=== PATIENT | male | born 1965 | race African-American/Black ===

== ENCOUNTER 2020-04-28 21:49 | Inpatient (IN) ==
[2020-04-28] MEDS ORDERED: MORPHINE 4 MG/1 ML VIAL ONE (22:25)
[2020-04-28] MEDS ORDERED: MORPHINE 4 MG/1 ML VIAL IV STA (22:25)
[2020-04-28] MEDS ORDERED: ONDANSETRON 4 MG/2 ML VIAL ONE (23:41)
[2020-04-28] MEDS ORDERED: propofoL 200 MG/20 ML VIAL IV ONE (23:41)
[2020-04-28] MEDS ORDERED: LIDOCAINE 2% 5 ML VIAL ONE (23:41)
[2020-04-28] MEDS ORDERED: fentaNYL 100 MCG/2 ML VIAL ONE (23:41)
[2020-04-28] MEDS ORDERED: DEXAMETHASONE 4 MG/1 ML VIAL ONE (23:41)
[2020-04-28] MEDS ORDERED: ROCURONIUM 50 MG/5 ML VIAL IV ONE (23:41)
[2020-04-28] MEDS ORDERED: SUCCINYLCHOLINE 200 MG/10 ML VIAL ONE (23:41)
[2020-04-28] MEDS ORDERED: MIDAZOLAM 2 MG/2 ML VIAL ONE (23:42)
[2020-04-28] MEDS ORDERED: BACITRACIN OINT 0.9 GM PACK TOP ONE (23:42)
[2020-04-28] MEDS ORDERED: MUPIROCIN 2% OINT 22 GM TUBE TOP ONE (23:42)
[2020-04-29] MEDS ORDERED: MORPHINE 4 MG/1 ML VIAL IV PRN ×2 (00:13)
[2020-04-29] MEDS ORDERED: diphenhydrAMINE CAP 25 MG CAPSULE PO PRN (00:13)
[2020-04-29] MEDS ORDERED: MAGNESIUM HYDROXIDE SUSP 30 ML UDCUP PO PRN (00:13)
[2020-04-29] MEDS ORDERED: KETOROLAC 30 MG/1 ML VIAL IV PRN (00:13)
[2020-04-29] MEDS ORDERED: ONDANSETRON 4 MG/2 ML VIAL IV PRN (00:13)
[2020-04-29] MEDS ORDERED: ceFAZolin 1,000 MG VIAL ONE ×2 (00:26)
[2020-04-29] MEDS ORDERED: LACTATED RINGERS 2,000 ML IV ONE (00:59)
[2020-04-29] MEDS ORDERED: KETOROLAC 30 MG/1 ML VIAL ONE (01:13)
[2020-04-29] MEDS ORDERED: SEVOFLURANE 1 UNIT/15 MINUTE INH ONE (01:25)
[2020-04-29] MEDS: ceFAZolin 2,000 MG in PREMIX 1 EACH IV SCH ×3 (03:37→18:12)
[2020-04-29 06:44] LABS: Basophils % 0.2 % (0.0-0.8); Hematocrit 37.4 VOL% (42.0-52.0); Hemoglobin 12.2 GM/DL (14.0-18.0); Immature Granulocytes % 0.5 %; Immature Granulocytes Absolute 0.06 #; Lymphocytes % 8.2 % (21.2-54.2); Mean Corpuscular HGB Conc 32.6 GM/DL (32-36); Mean Corpuscular Volume 83.7 FL (87-102); Mean Platelet Volume 9.5 FL (9.6-12.0); Neutrophils % 87.1 % (38.7-73.9); Platelet Count 256 T/CUMM (130-400); Red Blood Count 4.47 MC/CUMM (3.8-5.5); Red Cell Distribution Width 15.1 % (9.3-17.3); White Blood Count 12.7 T/CUMM (4-12)
[2020-04-29 07:03] LABS: Calcium 8.1 MG/DL (8.5-10.1); Osmolality,Calculated 281.3 MOS/KG (273-304)
[2020-04-29] MEDS: LACTATED RINGERS 1,000 ML IV SCH (07:43)
[2020-04-29] MEDS: GENTAMICIN INJ 400 MG in SODIUM CHLORIDE 0.9% 100 ML IV SCH (09:33)
[2020-04-29] MEDS ORDERED: FONDAPARINUX 2.5 MG/0.5 ML SYRINGE SUBCUT SCH (18:00)
[2020-04-30] MEDS: LACTATED RINGERS 1,000 ML IV SCH ×2 (01:14→21:07)
[2020-04-30] MEDS: ceFAZolin 2,000 MG in PREMIX 1 EACH IV SCH ×3 (03:35→19:26)
[2020-04-30 05:29] LABS: Basophils # 0.1 10*3/uL (0.0-0.2); Basophils % 0.5 % (0.0-0.8); Eosinophils # 0.2 10*3/uL (0.0-0.87); Eosinophils % 1.8 % (0.00-10.9); Hemoglobin 11.5 GM/DL (14.0-18.0); Immature Granulocytes % 0.4 %; Immature Granulocytes Absolute 0.04 #; Lymphocytes # 2.2 10*3/uL (1.4-4.0); Lymphocytes % 19.5 % (21.2-54.2); Mean Corpuscular HGB Conc 32.9 GM/DL (32-36); Mean Corpuscular Volume 84.5 FL (87-102); Mean Platelet Volume 10.1 FL (9.6-12.0); Monocytes % 11.5 % (1.7-12.7); Neutrophils % 66.3 % (38.7-73.9); Platelet Count 222 T/CUMM (130-400); Red Blood Count 4.14 MC/CUMM (3.8-5.5); White Blood Count 11.4 T/CUMM (4-12)
[2020-04-30 06:08] LABS: Calcium 8.3 MG/DL (8.5-10.1); Osmolality,Calculated 275.5 MOS/KG (273-304)
[2020-04-30] MEDS ORDERED: MIDAZOLAM 2 MG/2 ML VIAL ONE (06:46)
[2020-04-30] MEDS ORDERED: fentaNYL 100 MCG/2 ML VIAL ONE (06:46)
[2020-04-30] MEDS ORDERED: FAMOTIDINE 20 MG/2 ML VIAL IV ONE (07:53)
[2020-04-30] MEDS ORDERED: SEVOFLURANE 1 UNIT/15 MINUTE INH ONE ×3 (08:36→08:51)
[2020-04-30] MEDS ORDERED: ONDANSETRON 4 MG/2 ML VIAL ONE (08:36)
[2020-04-30] MEDS ORDERED: propofoL 200 MG/20 ML VIAL IV ONE (08:36)
[2020-04-30] MEDS ORDERED: DEXAMETHASONE 4 MG/1 ML VIAL ONE (08:36)
[2020-04-30] MEDS ORDERED: PHENYLEPHRINE 1 MG/10 ML SYRINGE IV ONE (08:36)
[2020-04-30] MEDS ORDERED: LIDOCAINE 2% 5 ML VIAL ONE (08:36)
[2020-04-30] MEDS ORDERED: BACITRACIN OINT 0.9 GM PACK TOP ONE (08:37)
[2020-04-30] MEDS: GENTAMICIN INJ 400 MG in SODIUM CHLORIDE 0.9% 100 ML IV SCH ×2 (10:28→14:04)
[2020-04-30] MEDS: FONDAPARINUX 2.5 MG/0.5 ML SYRINGE SUBCUT SCH (15:27)
[2020-05-01] MEDS: ceFAZolin 2,000 MG in PREMIX 1 EACH IV SCH ×3 (03:05→19:30)
[2020-05-01 04:12] LABS: Basophils # 0.1 10*3/uL (0.0-0.2); Basophils % 0.6 % (0.0-0.8); Eosinophils # 0.3 10*3/uL (0.0-0.87); Eosinophils % 2.7 % (0.00-10.9); Hematocrit 34.5 VOL% (42.0-52.0); Hemoglobin 11.2 GM/DL (14.0-18.0); Immature Granulocytes % 0.3 %; Immature Granulocytes Absolute 0.04 #; Lymphocytes # 3.1 10*3/uL (1.4-4.0); Lymphocytes % 26.6 % (21.2-54.2); Mean Corpuscular HGB Conc 32.5 GM/DL (32-36); Mean Corpuscular Volume 83.7 FL (87-102); Mean Platelet Volume 9.7 FL (9.6-12.0); Monocytes % 11.8 % (1.7-12.7); Platelet Count 215 T/CUMM (130-400); Red Blood Count 4.12 MC/CUMM (3.8-5.5); Red Cell Distribution Width 14.7 % (9.3-17.3); White Blood Count 11.6 T/CUMM (4-12)
[2020-05-01] MEDS: GENTAMICIN INJ 400 MG in SODIUM CHLORIDE 0.9% 100 ML IV SCH (15:24)
[2020-05-01] MEDS: FONDAPARINUX 2.5 MG/0.5 ML SYRINGE SUBCUT SCH (17:33)
[2020-05-02] MEDS: ceFAZolin 2,000 MG in PREMIX 1 EACH IV SCH ×3 (03:39→19:33)
[2020-05-02] MEDS: GENTAMICIN INJ 400 MG in SODIUM CHLORIDE 0.9% 100 ML IV SCH (15:37)
[2020-05-02] MEDS: FONDAPARINUX 2.5 MG/0.5 ML SYRINGE SUBCUT SCH (15:37)
[2020-05-03] MEDS: ceFAZolin 2,000 MG in PREMIX 1 EACH IV SCH ×2 (02:50→10:09)
[2020-05-03 11:25] VITALS: BP 107/65
== END 2020-05-03 12:30 | disposition home or self-care (01) | DRG 492 ==
LOC: N.ED 21:49 → N.EDINP 04-29 → N.3E 04-29 02:25
PROVIDERS: ADMIT Orthopaedic Surgery; ATTEND Orthopaedic Surgery